=== PATIENT | female | born 1950 | race African-American/Black ===

== ENCOUNTER 2018-11-23 08:45 | Inpatient (IN) | payer MEDICARE, MEDICAID ==
[~2018-11-23] VITALS: Ht 177.8 cm; Wt 164.7 kg
[2018-11-23 09:58] LABS: HEMATOCRIT. 40.5 % (36.0-48.0); HEMOGLOBIN. 13.1 g/dL (12.0-16.0); MEAN CORPUSCULAR HEMOGLOBIN 31.2 pg (28.0-32.0); MEAN CORPUSCULAR VOLUME 96.3 fL (81.0-99.0); MEAN PLATELET VOLUME 8.8 fl (7.4-10.4); PLATELET 184 x1000/uL (130-400); RED CELL DISTRIBUTION WIDTH 18.1 % (11.6-14.6)
[2018-11-23 10:21] LABS: PLATELET ESTIMATE NORMAL
[2018-11-23 11:52] LABS: CHLORIDE 108 mEq/L (98-107)
[2018-11-23 11:54] LABS: INR 1.1; PROTHROMBIN TIME 11.2 sec (9.1-11.1)
[2018-11-23 14:34] VITALS: BP 121/71
[2018-11-23 16:00] VITALS: BP 131/56
[2018-11-23] MEDS ORDERED: ALLO100T PO (16:11)
[2018-11-23] MEDS ORDERED: ALLO100T MT (16:11)
[2018-11-23] MEDS ORDERED: COLC0.6C3 MT (16:11)
[2018-11-23] MEDS ORDERED: ERGO500013 MT (16:11)
[2018-11-23] MEDS ORDERED: ACET-2853 PO (16:11)
[2018-11-23] MEDS: POTASSIUM CHLORIDE 10MEQ TABLET SR PO SCH (16:34)
[2018-11-23] MEDS: FUROSEMIDE 40MG/4ML VIAL IVP SCH (16:34)
[2018-11-23] MEDS: ACETAMINOPHEN 325MG TABLET PO PRN ×2 (16:35→21:41)
[2018-11-23] MEDS ORDERED: SOTA80TA25 MT (16:56)
[2018-11-23] MEDS ORDERED: LOV40 SQ (16:56)
[2018-11-23] MEDS ORDERED: LORA10TA7 PO (16:56)
[2018-11-23] MEDS ORDERED: OMEP20CA10 MT (16:56)
[2018-11-23] MEDS ORDERED: POTA20TA82 MT (16:56)
[2018-11-23] MEDS ORDERED: OXYC-523 MT (16:56)
[2018-11-23] MEDS ORDERED: LORA10TA7 MT (16:56)
[2018-11-23] MEDS ORDERED: LIDO30CR46 TP (16:56)
[2018-11-23] MEDS ORDERED: GABA-531 MT (16:56)
[2018-11-23] MEDS ORDERED: FURO80TA87 MT (16:56)
[2018-11-23] MEDS ORDERED: TRAM50TA3 MT (16:58)
[2018-11-23] MEDS ORDERED: ONDA4TAB5 MT (16:58)
[2018-11-23] MEDS ORDERED: voltaren gel TD (16:58)
[2018-11-23 17:04] VITALS: BP 121/71
[2018-11-23] MEDS ORDERED: WARFARIN SODIUM 10MG TABLET PO NR (18:00)
[2018-11-23 20:00] VITALS: BP 108/56
[2018-11-23] MEDS: IPRATROPIUM/ALBUTEROL 0.5-3(2.5)MG/3ML NEB HHN SCH (20:18)
[2018-11-23] MEDS: ENOXAPARIN 100MG/ML SYR SUBCUT SCH (21:14)
[2018-11-23] MEDS: METRONIDAZOLE 500 MG PREMIX 100 ML IV SCH (21:15)
[2018-11-23] MEDS: LEVOFLOXACIN 500MG PREMIX 100 ML IV SCH (21:15)
[2018-11-23] MEDS: LACTOBACILLUS GG CAPSULE PO SCH (21:16)
[2018-11-24] VITALS: BP 108/52
[2018-11-24 00:34] LABS: CREATINE KINASE 49 IU/L (26-192)
[2018-11-24 00:35] LABS: CREATINE KINASE MB FRACTION < 1.0 ng/mL (0.5-3.6)
[2018-11-24] MEDS: IPRATROPIUM/ALBUTEROL 0.5-3(2.5)MG/3ML NEB HHN SCH ×5 (00:52→20:19)
[2018-11-24 04:00] VITALS: BP 100/67
[2018-11-24] MEDS: METRONIDAZOLE 500 MG PREMIX 100 ML IV SCH ×3 (05:15→20:52)
[2018-11-24 06:39] LABS: INR 1.2; PROTHROMBIN TIME 11.6 sec (9.1-11.1)
[2018-11-24 06:59] LABS: CHLORIDE 108 mEq/L (98-107)
[2018-11-24 07:07] LABS: CREATINE KINASE 51 IU/L (26-192); HDL CHOLESTEROL 44 mg/dL (40-59)
[2018-11-24 07:08] LABS: BASOPHILS % 0.7 % (0.0-2.0); EOSINOPHILS % 1.8 % (0.0-5.0); HEMATOCRIT. 36.8 % (36.0-48.0); HEMOGLOBIN. 11.9 g/dL (12.0-16.0); LDL CHOLESTEROL 72 mg/dL (5-100); LYMPHOCYTES % 17.4 % (20.0-50.0); MEAN CORPUSCULAR HEMOGLOBIN 31.3 pg (28.0-32.0); MEAN CORPUSCULAR VOLUME 97.1 fL (81.0-99.0); MONOCYTES % 7.4 % (2.0-8.0); NEUTROPHILS % 72.7 % (40.0-76.0); PLATELET 162 x1000/uL (130-400); RED BLOOD CELL COUNT 3.79 mill/uL (4.2-5.4); RED CELL DISTRIBUTION WIDTH 17.4 % (11.6-14.6)
[2018-11-24 07:13] LABS: CREATINE KINASE MB FRACTION < 1.0 ng/mL (0.5-3.6)
[2018-11-24 08:00] VITALS: BP 113/67
[2018-11-24] MEDS ORDERED: DIATR MEGLU/DIATRIZOATE SOLN 30ML PO SCH (08:30)
[2018-11-24] MEDS: LACTOBACILLUS GG CAPSULE PO SCH (09:30)
[2018-11-24] MEDS: AMLODIPINE 2.5MG TABLET PO SCH (09:31)
[2018-11-24] MEDS: FUROSEMIDE 40MG/4ML VIAL IVP SCH (09:31)
[2018-11-24] MEDS: POTASSIUM CHLORIDE 10MEQ TABLET SR PO SCH (09:32)
[2018-11-24] MEDS: ENOXAPARIN 100MG/ML SYR SUBCUT SCH (09:33)
[2018-11-24] MEDS: ACETAMINOPHEN 325MG TABLET PO PRN ×2 (11:14→23:24)
[2018-11-24 12:00] VITALS: BP 134/71
[2018-11-24] MEDS ORDERED: IOHEXOL-300 100 ML BOTTLE ONE (12:42)
[2018-11-24] MEDS: SOTALOL HCL 80MG TABLET PO SCH ×2 (14:18→20:51)
[2018-11-24 16:00] VITALS: BP 138/78
[2018-11-24 16:14] LABS: CREATINE KINASE 59 IU/L (26-192)
[2018-11-24 16:15] LABS: CREATINE KINASE MB FRACTION < 1.0 ng/mL (0.5-3.6)
[2018-11-24] MEDS ORDERED: WARFARIN SODIUM 10MG TABLET PO SCH (18:00)
[2018-11-24 20:00] VITALS: BP 176/71
[2018-11-24] MEDS: ENOXAPARIN 150MG/ML SYR SUBCUT SCH (20:50)
[2018-11-24] MEDS: LEVOFLOXACIN 500MG PREMIX 100 ML IV SCH (20:51)
[2018-11-24] MEDS: ONDANSETRON HCL 4MG/2ML INJ IV PRN (23:25)
[2018-11-25] VITALS: BP 135/71
[2018-11-25 04:00] VITALS: BP 142/73
[2018-11-25] MEDS: IPRATROPIUM/ALBUTEROL 0.5-3(2.5)MG/3ML NEB HHN SCH ×3 (04:00→21:01)
[2018-11-25] MEDS: METRONIDAZOLE 500 MG PREMIX 100 ML IV SCH ×3 (04:34→21:16)
[2018-11-25] MEDS: ONDANSETRON HCL 4MG/2ML INJ IV PRN (05:32)
[2018-11-25] MEDS: ACETAMINOPHEN 325MG TABLET PO PRN ×2 (05:32→11:56)
[2018-11-25 06:51] LABS: INR 1.2; PROTHROMBIN TIME 11.7 sec (9.1-11.1)
[2018-11-25 07:10] LABS: BASOPHILS % 0.4 % (0.0-2.0); EOSINOPHILS % 0.8 % (0.0-5.0); HEMOGLOBIN. 10.9 g/dL (12.0-16.0); LYMPHOCYTES % 12.4 % (20.0-50.0); MEAN CORPUSCULAR HEMOGLOBIN 31.1 pg (28.0-32.0); MEAN CORPUSCULAR VOLUME 96.8 fL (81.0-99.0); MEAN PLATELET VOLUME 8.9 fl (7.4-10.4); MONOCYTES % 7.7 % (2.0-8.0); NEUTROPHILS % 78.7 % (40.0-76.0); PLATELET 157 x1000/uL (130-400); RED BLOOD CELL COUNT 3.52 mill/uL (4.2-5.4); RED CELL DISTRIBUTION WIDTH 17.6 % (11.6-14.6)
[2018-11-25 08:00] VITALS: BP 134/58
[2018-11-25 08:51] LABS: CHLORIDE 107 mEq/L (98-107)
[2018-11-25] MEDS: LACTOBACILLUS GG CAPSULE PO SCH (10:13)
[2018-11-25] MEDS: ENOXAPARIN 150MG/ML SYR SUBCUT SCH ×2 (10:13→21:15)
[2018-11-25] MEDS: POTASSIUM CHLORIDE 10MEQ TABLET SR PO SCH (10:13)
[2018-11-25] MEDS: FUROSEMIDE 40MG/4ML VIAL IVP SCH (10:13)
[2018-11-25] MEDS: AMLODIPINE 2.5MG TABLET PO SCH (10:14)
[2018-11-25] MEDS: SOTALOL HCL 80MG TABLET PO SCH ×2 (10:15→21:16)
[2018-11-25 12:00] VITALS: BP 174/85
[2018-11-25 16:00] VITALS: BP 135/77
[2018-11-25] MEDS ORDERED: WARFARIN SODIUM 10MG TABLET PO NR (18:00)
[2018-11-25] MEDS: TRAMADOL HCL/ACETAMINOPHEN 37.5/325MG TABLET PO PRN (18:12)
[2018-11-25] MEDS: LEVOFLOXACIN 500MG PREMIX 100 ML IV SCH (20:13)
[2018-11-25 20:45] VITALS: BP 118/63
[2018-11-26] VITALS (9 sets, daily range): BP systolic 114–145; BP diastolic 63–80
[2018-11-26] MEDS: IPRATROPIUM/ALBUTEROL 0.5-3(2.5)MG/3ML NEB HHN SCH ×7 (04:00→23:49)
[2018-11-26] MEDS: METRONIDAZOLE 500 MG PREMIX 100 ML IV SCH ×3 (04:52→21:32)
[2018-11-26] MEDS: ONDANSETRON HCL 4MG/2ML INJ IV PRN ×2 (04:52→14:51)
[2018-11-26 07:44] LABS: BASOPHILS % 0.5 % (0.0-2.0); EOSINOPHILS % 1.1 % (0.0-5.0); HEMATOCRIT. 34.2 % (36.0-48.0); HEMOGLOBIN. 11.2 g/dL (12.0-16.0); LYMPHOCYTES % 14.4 % (20.0-50.0); MEAN CORPUSCULAR HEMOGLOBIN 31.5 pg (28.0-32.0); MEAN CORPUSCULAR VOLUME 96.2 fL (81.0-99.0); MEAN PLATELET VOLUME 9.3 fl (7.4-10.4); MONOCYTES % 9.1 % (2.0-8.0); NEUTROPHILS % 74.9 % (40.0-76.0); PLATELET 148 x1000/uL (130-400); RED BLOOD CELL COUNT 3.56 mill/uL (4.2-5.4); RED CELL DISTRIBUTION WIDTH 17.2 % (11.6-14.6)
[2018-11-26 08:05] LABS: CHLORIDE 107 mEq/L (98-107)
[2018-11-26 08:20] LABS: INR 1.4; PROTHROMBIN TIME 13.9 sec (9.1-11.1)
[2018-11-26] MEDS: TRAMADOL HCL/ACETAMINOPHEN 37.5/325MG TABLET PO PRN (11:14)
[2018-11-26] MEDS: FUROSEMIDE 40MG/4ML VIAL IVP SCH (11:15)
[2018-11-26] MEDS: AMLODIPINE 2.5MG TABLET PO SCH (11:15)
[2018-11-26] MEDS: POTASSIUM CHLORIDE 10MEQ TABLET SR PO SCH (11:15)
[2018-11-26] MEDS: SOTALOL HCL 80MG TABLET PO SCH ×2 (11:16→20:45)
[2018-11-26] MEDS: ENOXAPARIN 150MG/ML SYR SUBCUT SCH ×2 (11:16→20:44)
[2018-11-26] MEDS: LACTOBACILLUS GG CAPSULE PO SCH (11:17)
[2018-11-26] MEDS ORDERED: WARFARIN SODIUM 7.5MG TABLET PO NR (18:00)
[2018-11-26] MEDS: LEVOFLOXACIN 500MG PREMIX 100 ML IV SCH (20:44)
[2018-11-27] MEDS: IPRATROPIUM/ALBUTEROL 0.5-3(2.5)MG/3ML NEB HHN SCH ×4 (04:00→15:36)
[2018-11-27 04:01] VITALS: BP 125/66
[2018-11-27 04:14] LABS: OVA & PARASITE EXAM Final report (.)
[2018-11-27] MEDS: METRONIDAZOLE 500 MG PREMIX 100 ML IV SCH ×2 (05:00→13:33)
[2018-11-27 06:33] LABS: INR 1.6; PROTHROMBIN TIME 16.1 sec (9.1-11.1)
[2018-11-27 06:42] LABS: CHLORIDE 105 mEq/L (98-107)
[2018-11-27 07:24] LABS: BASOPHILS % 0.3 % (0.0-2.0); EOSINOPHILS % 1.6 % (0.0-5.0); HEMATOCRIT. 36.8 % (36.0-48.0); HEMOGLOBIN. 11.9 g/dL (12.0-16.0); LYMPHOCYTES % 14.4 % (20.0-50.0); MEAN CORPUSCULAR HEMOGLOBIN 31.4 pg (28.0-32.0); MEAN CORPUSCULAR VOLUME 96.9 fL (81.0-99.0); MONOCYTES % 8.7 % (2.0-8.0); PLATELET 163 x1000/uL (130-400); RED CELL DISTRIBUTION WIDTH 17.5 % (11.6-14.6)
[2018-11-27 08:00] VITALS: BP 120/75
[2018-11-27] MEDS: LACTOBACILLUS GG CAPSULE PO SCH (08:44)
[2018-11-27] MEDS: POTASSIUM CHLORIDE 10MEQ TABLET SR PO SCH (08:44)
[2018-11-27] MEDS: AMLODIPINE 2.5MG TABLET PO SCH (08:44)
[2018-11-27] MEDS: SOTALOL HCL 80MG TABLET PO SCH (08:44)
[2018-11-27] MEDS: FUROSEMIDE 40MG/4ML VIAL IVP SCH (08:44)
[2018-11-27] MEDS: ENOXAPARIN 150MG/ML SYR SUBCUT SCH (08:45)
[2018-11-27] MEDS: ACETAMINOPHEN 325MG TABLET PO PRN ×2 (08:56→15:16)
[2018-11-27 14:17] VITALS: BP 128/67
[2018-11-27 17:05] VITALS: BP 133/64
[2018-11-27] MEDS ORDERED: WARFARIN SODIUM 7.5MG TABLET PO SCH (18:00)
== END 2018-11-27 19:21 | DRG 189 ==
LOC: ER 08:54 → 6WST 12:19 → EDBEDREQTM 12:22 → EDBEDREQ 12:22 → ENRESERV 12:31
PROVIDERS: ADMIT Internal Medicine; ATTEND Internal Medicine Geriatric Medicine
DX: J96.00 Acute respiratory failure, unspecified whether with hypoxia or hypercapnia (principal); E44.1 Mild protein-calorie malnutrition; Z68.43 Body mass index [BMI] 50.0-59.9, adult; I95.9 Hypotension, unspecified; I50.9 Heart failure, unspecified; I11.0 Hypertensive heart disease with heart failure; I77.810 Thoracic aortic ectasia; E03.9 Hypothyroidism, unspecified; M10.9 Gout, unspecified; E66.01 Morbid (severe) obesity due to excess calories; K52.9 Noninfective gastroenteritis and colitis, unspecified; I48.0 Paroxysmal atrial fibrillation; Z90.11 Acquired absence of right breast and nipple; Z90.12 Acquired absence of left breast and nipple; Z90.710 Acquired absence of both cervix and uterus; Z88.8 Allergy status to other drugs, medicaments and biological substances; Z88.0 Allergy status to penicillin; Z88.5 Allergy status to narcotic agent; Z79.01 Long term (current) use of anticoagulants; Z79.899 Other long term (current) drug therapy; Z92.21 Personal history of antineoplastic chemotherapy; Z85.3 Personal history of malignant neoplasm of breast; Z85.42 Personal history of malignant neoplasm of other parts of uterus; Z86.711 Personal history of pulmonary embolism; Z86.718 Personal history of other venous thrombosis and embolism
CPT/HCPCS: 36415; 71045; 74178; 78580; 80048; 80061; 82550; 82553; 83735; 83880; 84484; 84550; 87177; 87209; 89055; 93005; 93306; 93970; 94640; 97162; 99285; A6261; J1650; J1940; J1956; J2405; J3490; J7040; J7620; Q9963; Q9967

== ENCOUNTER 2020-02-28 22:20 | Inpatient (IN) | payer MEDICARE, MEDICAID ==
[~2020-02-28] VITALS: Ht 177.8 cm; Wt 159.2 kg
[2020-02-28 22:20] VITALS: BP 109/56
[~2020-02-28 22:20] MED LIST: ACET650T37 PO; ALLO100T MT; ALLO100T PO; COLC0.6C3 MT; ERGO500013 MT; FURO80TA87 MT; GABA-531 MT; LIDO30CR46 TP; LORA10TA7 MT; LORA10TA7 PO; LOV40 SQ; OMEP20CA14 MT; ONDA4TAB5 MT; OXYC-523 MT; POTA20TA82 MT; SOTA80TA25 MT; TRAM50TA3 MT; voltaren gel TD
[2020-02-28 23:00] VITALS: BP 109/56
[2020-02-29] MEDS ORDERED: CLONIDINE 0.1MG TABLET PO PRN
[2020-02-29] MEDS ORDERED: TRAMADOL 50MG TABLET PO PRN
[2020-02-29] MEDS ORDERED: ONDANSETRON HCL 4MG/2ML INJ IV PRN (00:30)
[2020-02-29] MEDS ORDERED: SOTA80TA MT (04:50)
[2020-02-29] MEDS ORDERED: GABA-531 PO (04:58)
[2020-02-29] MEDS ORDERED: HYDR-3281 PO (04:58)
[2020-02-29] MEDS: GABAPENTIN 300MG CAPSULE PO SCH ×3 (06:45→21:58)
[2020-02-29] MEDS: HYDROCODONE/ACETAMINOPHEN 5/325MG TABLET PO PRN (06:45)
[2020-02-29 08:00] VITALS: BP 120/83
[2020-02-29] MEDS ORDERED: SOTALOL HCL 80MG TABLET PO ONE (08:30)
[2020-02-29] MEDS: APIXABAN 5 MG TABLET PO SCH ×2 (08:49→18:17)
[2020-02-29] MEDS: GUAIFENESIN 600MG ER TABLET PO SCH ×2 (08:49→21:58)
[2020-02-29] MEDS: POTASSIUM CHLORIDE 10MEQ TABLET SR PO SCH (08:49)
[2020-02-29] MEDS: ALLOPURINOL 100 MG TABLET PO SCH (08:50)
[2020-02-29] MEDS: DILTIAZEM HCL 60MG TABLET PO PRN (08:51)
[2020-02-29] MEDS: FUROSEMIDE 40MG TABLET PO SCH (08:52)
[2020-02-29] MEDS ORDERED: FUROSEMIDE 40MG/4ML VIAL IVP SCH (09:00)
[2020-02-29] MEDS ORDERED: FUROSEMIDE 40MG TABLET PO SCH (09:00)
[2020-02-29] MEDS: FAMOTIDINE 20MG TABLET PO SCH ×2 (09:46→21:58)
[2020-02-29] MEDS: SOTALOL HCL 80MG TABLET PO SCH ×2 (09:47→21:59)
[2020-02-29] MEDS ORDERED: POLYVINYL ALCOHOL OPHTH DROPS 15ML BOTHEYE PRN (10:30)
[2020-02-29 11:57] LABS: BASOPHILS % 0.7 % (0.0-2.0); EOSINOPHILS % 2.1 % (0.0-5.0); HEMATOCRIT. 43.4 % (36.0-48.0); HEMOGLOBIN. 14.2 g/dL (12.0-16.0); LYMPHOCYTES % 16.2 % (20.0-50.0); MEAN CORPUSCULAR HEMOGLOBIN 30.4 pg (28.0-32.0); MEAN CORPUSCULAR VOLUME 92.8 fL (81.0-99.0); MEAN PLATELET VOLUME 9.1 fl (7.4-10.4); MONOCYTES % 5.9 % (2.0-8.0); NEUTROPHILS % 75.1 % (40.0-76.0); PLATELET 314 x1000/uL (130-400); RED BLOOD CELL COUNT 4.67 mill/uL (4.2-5.4); RED CELL DISTRIBUTION WIDTH 17.9 % (11.6-14.6)
[2020-02-29 12:06] LABS: CHLORIDE 103 mEq/L (98-107)
[2020-02-29] MEDS: DOCUSATE SODIUM 250MG CAPSULE PO SCH (18:17)
[2020-02-29] MEDS: ACETAMINOPHEN 325MG TABLET PO PRN (18:20)
[2020-02-29 20:00] VITALS: BP 125/75
[2020-02-29] MEDS: IPRATROPIUM/ALBUTEROL 0.5-3(2.5)MG/3ML NEB HHN SCH (20:53)
[2020-03-01 00:15] VITALS: BP 107/70
[2020-03-01] MEDS: DILTIAZEM HCL 60MG TABLET PO PRN ×2 (00:46→07:00)
[2020-03-01] MEDS: GABAPENTIN 300MG CAPSULE PO SCH ×3 (06:54→21:24)
[2020-03-01] MEDS: HYDROCODONE/ACETAMINOPHEN 5/325MG TABLET PO PRN (06:59)
[2020-03-01] MEDS: IPRATROPIUM/ALBUTEROL 0.5-3(2.5)MG/3ML NEB HHN SCH ×4 (07:30→20:20)
[2020-03-01 07:54] VITALS: BP 115/77
[2020-03-01] MEDS: APIXABAN 5 MG TABLET PO SCH ×2 (08:24→17:17)
[2020-03-01] MEDS: FAMOTIDINE 20MG TABLET PO SCH ×2 (08:24→21:24)
[2020-03-01] MEDS: GUAIFENESIN 600MG ER TABLET PO SCH ×2 (08:24→21:24)
[2020-03-01] MEDS: ALLOPURINOL 100 MG TABLET PO SCH (08:24)
[2020-03-01] MEDS: DILTIAZEM HCL 60MG TABLET PO SCH ×4 (08:24→23:54)
[2020-03-01] MEDS: FUROSEMIDE 40MG TABLET PO SCH (08:24)
[2020-03-01] MEDS: POTASSIUM CHLORIDE 10MEQ TABLET SR PO SCH (08:24)
[2020-03-01] MEDS: SOTALOL HCL 80MG TABLET PO SCH ×2 (08:24→21:00)
[2020-03-01 08:44] LABS: BASOPHILS % 1.3 % (0.0-2.0); EOSINOPHILS % 2.6 % (0.0-5.0); HEMATOCRIT. 37.9 % (36.0-48.0); HEMOGLOBIN. 12.6 g/dL (12.0-16.0); LYMPHOCYTES % 17.7 % (20.0-50.0); MEAN CORPUSCULAR HEMOGLOBIN 30.2 pg (28.0-32.0); MEAN CORPUSCULAR VOLUME 90.8 fL (81.0-99.0); MEAN PLATELET VOLUME 8.9 fl (7.4-10.4); MONOCYTES % 5.1 % (2.0-8.0); NEUTROPHILS % 73.3 % (40.0-76.0); PLATELET 308 x1000/uL (130-400); RED BLOOD CELL COUNT 4.17 mill/uL (4.2-5.4); RED CELL DISTRIBUTION WIDTH 17.2 % (11.6-14.6)
[2020-03-01] MEDS: CEPHALEXIN 250MG CAPSULE PO SCH ×4 (09:28→21:24)
[2020-03-01] MEDS ORDERED: NA PHOS,M-B/NA PHOS,DI-BA ENEMA 118ML PR PRN (09:30)
[2020-03-01] MEDS: LACTULOSE 20G/30ML UDC PO PRN ×2 (13:46→17:17)
[2020-03-01] MEDS: ACETAMINOPHEN 325MG TABLET PO PRN (17:17)
[2020-03-01] MEDS: DOCUSATE SODIUM 250MG CAPSULE PO SCH (17:17)
[2020-03-01 20:00] VITALS: BP 106/59
[2020-03-02] MEDS: IPRATROPIUM/ALBUTEROL 0.5-3(2.5)MG/3ML NEB HHN SCH ×4 (01:02→20:05)
[2020-03-02] MEDS: GABAPENTIN 300MG CAPSULE PO SCH ×3 (05:51→21:40)
[2020-03-02] MEDS: DILTIAZEM HCL 60MG TABLET PO SCH (05:51)
[2020-03-02 06:44] LABS: BASOPHILS % 1.1 % (0.0-2.0); EOSINOPHILS % 3.2 % (0.0-5.0); HEMATOCRIT. 36.6 % (36.0-48.0); HEMOGLOBIN. 12.1 g/dL (12.0-16.0); LYMPHOCYTES % 19.4 % (20.0-50.0); MEAN PLATELET VOLUME 8.9 fl (7.4-10.4); MONOCYTES % 6.5 % (2.0-8.0); NEUTROPHILS % 69.8 % (40.0-76.0); PLATELET 275 x1000/uL (130-400); RED BLOOD CELL COUNT 4.03 mill/uL (4.2-5.4); RED CELL DISTRIBUTION WIDTH 17.5 % (11.6-14.6)
[2020-03-02 06:54] LABS: CHLORIDE 104 mEq/L (98-107)
[2020-03-02] MEDS: ALLOPURINOL 100 MG TABLET PO SCH (08:05)
[2020-03-02] MEDS: BISACODYL 5MG TABLET PO PRN (08:05)
[2020-03-02] MEDS: APIXABAN 5 MG TABLET PO SCH ×2 (08:06→17:57)
[2020-03-02] MEDS: CEPHALEXIN 250MG CAPSULE PO SCH ×4 (08:07→20:22)
[2020-03-02] MEDS: GUAIFENESIN 600MG ER TABLET PO SCH ×2 (08:07→20:22)
[2020-03-02] MEDS: POTASSIUM CHLORIDE 10MEQ TABLET SR PO SCH (08:10)
[2020-03-02] MEDS: FAMOTIDINE 20MG TABLET PO SCH ×2 (08:12→20:22)
[2020-03-02] MEDS: HYDROCODONE/ACETAMINOPHEN 5/325MG TABLET PO PRN (08:16)
[2020-03-02] MEDS: SOTALOL HCL 80MG TABLET PO SCH ×3 (08:17→20:48)
[2020-03-02] MEDS: FUROSEMIDE 40MG TABLET PO SCH (08:18)
[2020-03-02] MEDS: DILTIAZEM HCL 90MG TABLET PO SCH ×2 (12:32→17:46)
[2020-03-02] MEDS: DOCUSATE SODIUM 250MG CAPSULE PO SCH (17:46)
[2020-03-02 20:00] VITALS: BP 108/66
[2020-03-03] MEDS: DILTIAZEM HCL 60MG TABLET PO PRN (00:19)
[2020-03-03 00:29] VITALS: BP 120/79
[2020-03-03] MEDS: DILTIAZEM HCL 90MG TABLET PO SCH ×5 (00:29→23:01)
[2020-03-03] MEDS: GABAPENTIN 300MG CAPSULE PO SCH ×3 (06:55→21:20)
[2020-03-03 07:25] LABS: EOSINOPHILS % 3.1 % (0.0-5.0); HEMATOCRIT. 36.3 % (36.0-48.0); HEMOGLOBIN. 11.8 g/dL (12.0-16.0); LYMPHOCYTES % 18.4 % (20.0-50.0); MEAN CORPUSCULAR HEMOGLOBIN 30.1 pg (28.0-32.0); MEAN CORPUSCULAR VOLUME 92.3 fL (81.0-99.0); MONOCYTES % 7.1 % (2.0-8.0); NEUTROPHILS % 70.4 % (40.0-76.0); PLATELET 269 x1000/uL (130-400); RED BLOOD CELL COUNT 3.94 mill/uL (4.2-5.4); RED CELL DISTRIBUTION WIDTH 18.1 % (11.6-14.6)
[2020-03-03 08:08] LABS: CHLORIDE 106 mEq/L (98-107)
[2020-03-03 08:30] VITALS: BP 115/63
[2020-03-03] MEDS: ALLOPURINOL 100 MG TABLET PO SCH (08:54)
[2020-03-03] MEDS: CEPHALEXIN 250MG CAPSULE PO SCH ×4 (08:54→21:20)
[2020-03-03] MEDS: POTASSIUM CHLORIDE 10MEQ TABLET SR PO SCH (08:54)
[2020-03-03] MEDS: FAMOTIDINE 20MG TABLET PO SCH ×2 (08:55→21:20)
[2020-03-03] MEDS: SOTALOL HCL 80MG TABLET PO SCH ×2 (08:59→21:20)
[2020-03-03] MEDS: IPRATROPIUM/ALBUTEROL 0.5-3(2.5)MG/3ML NEB HHN SCH ×3 (09:43→20:27)
[2020-03-03] MEDS: FUROSEMIDE 40MG TABLET PO SCH (10:13)
[2020-03-03] MEDS: APIXABAN 5 MG TABLET PO SCH ×2 (10:13→17:22)
[2020-03-03] MEDS: GUAIFENESIN 600MG ER TABLET PO SCH ×2 (10:14→21:20)
[2020-03-03] MEDS: DOCUSATE SODIUM 250MG CAPSULE PO SCH (17:49)
[2020-03-03 20:00] VITALS: BP 112/65
[2020-03-04] MEDS: IPRATROPIUM/ALBUTEROL 0.5-3(2.5)MG/3ML NEB HHN SCH ×4 (01:54→21:30)
[2020-03-04] MEDS: GABAPENTIN 300MG CAPSULE PO SCH ×3 (06:35→21:20)
[2020-03-04] MEDS: DILTIAZEM HCL 90MG TABLET PO SCH ×4 (06:36→23:18)
[2020-03-04 08:11] VITALS: BP 132/69
[2020-03-04] MEDS: CEPHALEXIN 250MG CAPSULE PO SCH ×4 (09:13→21:21)
[2020-03-04] MEDS: ACETAMINOPHEN 325MG TABLET PO PRN (09:13)
[2020-03-04] MEDS: FAMOTIDINE 20MG TABLET PO SCH ×2 (09:13→21:21)
[2020-03-04] MEDS: APIXABAN 5 MG TABLET PO SCH ×2 (09:14→16:46)
[2020-03-04] MEDS: POTASSIUM CHLORIDE 10MEQ TABLET SR PO SCH (09:14)
[2020-03-04] MEDS: ALLOPURINOL 100 MG TABLET PO SCH (09:14)
[2020-03-04] MEDS: GUAIFENESIN 600MG ER TABLET PO SCH ×2 (09:14→21:20)
[2020-03-04] MEDS: SOTALOL HCL 80MG TABLET PO SCH ×2 (09:15→21:21)
[2020-03-04] MEDS: FUROSEMIDE 40MG TABLET PO SCH (09:15)
[2020-03-04] MEDS: DOCUSATE SODIUM 250MG CAPSULE PO SCH (18:05)
[2020-03-04 20:00] VITALS: BP 112/64
[2020-03-05] MEDS: DILTIAZEM HCL 90MG TABLET PO SCH ×3 (06:00→17:44)
[2020-03-05] MEDS: GABAPENTIN 300MG CAPSULE PO SCH ×3 (06:24→21:57)
[2020-03-05] MEDS: DILTIAZEM HCL 60MG TABLET PO PRN ×2 (06:25→17:44)
[2020-03-05 06:43] LABS: BASOPHILS % 0.6 % (0.0-2.0); EOSINOPHILS % 2.8 % (0.0-5.0); HEMATOCRIT. 34.9 % (36.0-48.0); HEMOGLOBIN. 11.3 g/dL (12.0-16.0); LYMPHOCYTES % 21.6 % (20.0-50.0); MEAN CORPUSCULAR HEMOGLOBIN 29.9 pg (28.0-32.0); MEAN CORPUSCULAR VOLUME 92.1 fL (81.0-99.0); MEAN PLATELET VOLUME 8.8 fl (7.4-10.4); MONOCYTES % 6.2 % (2.0-8.0); NEUTROPHILS % 68.8 % (40.0-76.0); PLATELET 261 x1000/uL (130-400); RED BLOOD CELL COUNT 3.79 mill/uL (4.2-5.4); RED CELL DISTRIBUTION WIDTH 17.9 % (11.6-14.6)
[2020-03-05 07:55] VITALS: BP 126/75
[2020-03-05] MEDS: IPRATROPIUM/ALBUTEROL 0.5-3(2.5)MG/3ML NEB HHN SCH ×2 (08:32→13:55)
[2020-03-05 08:45] LABS: CHLORIDE 107 mEq/L (98-107)
[2020-03-05] MEDS: FAMOTIDINE 20MG TABLET PO SCH ×2 (09:03→21:28)
[2020-03-05] MEDS: GUAIFENESIN 600MG ER TABLET PO SCH ×2 (09:03→21:28)
[2020-03-05] MEDS: ALLOPURINOL 100 MG TABLET PO SCH (09:03)
[2020-03-05] MEDS: FUROSEMIDE 40MG TABLET PO SCH (09:04)
[2020-03-05] MEDS: APIXABAN 5 MG TABLET PO SCH ×2 (09:04→16:56)
[2020-03-05] MEDS: CEPHALEXIN 250MG CAPSULE PO SCH ×5 (09:04→21:28)
[2020-03-05] MEDS: SOTALOL HCL 80MG TABLET PO SCH ×2 (09:05→21:38)
[2020-03-05] MEDS: POTASSIUM CHLORIDE 10MEQ TABLET SR PO SCH (09:05)
[2020-03-05] MEDS: ACETAMINOPHEN 325MG TABLET PO PRN ×2 (09:09→22:10)
[2020-03-05] MEDS: DOCUSATE SODIUM 250MG CAPSULE PO SCH (17:42)
[2020-03-05 20:00] VITALS: BP 111/54
[2020-03-06] MEDS: GABAPENTIN 300MG CAPSULE PO SCH ×3 (06:13→21:43)
[2020-03-06] MEDS: DILTIAZEM HCL 90MG TABLET PO SCH ×4 (06:13→17:22)
[2020-03-06] MEDS: IPRATROPIUM/ALBUTEROL 0.5-3(2.5)MG/3ML NEB HHN SCH ×2 (07:34→13:29)
[2020-03-06 07:56] VITALS: BP 126/64
[2020-03-06] MEDS: GUAIFENESIN 600MG ER TABLET PO SCH ×2 (09:40→21:43)
[2020-03-06] MEDS: SOTALOL HCL 80MG TABLET PO SCH ×2 (09:40→21:43)
[2020-03-06] MEDS: FUROSEMIDE 40MG TABLET PO SCH (09:40)
[2020-03-06] MEDS: POTASSIUM CHLORIDE 10MEQ TABLET SR PO SCH (09:40)
[2020-03-06] MEDS: ALLOPURINOL 100 MG TABLET PO SCH (09:40)
[2020-03-06] MEDS: FAMOTIDINE 20MG TABLET PO SCH ×2 (09:41→21:43)
[2020-03-06] MEDS: APIXABAN 5 MG TABLET PO SCH ×2 (09:41→17:19)
[2020-03-06] MEDS: ACETAMINOPHEN 325MG TABLET PO PRN (09:44)
[2020-03-06] MEDS ORDERED: IPRATROPIUM/ALBUTEROL 0.5-3(2.5)MG/3ML NEB HHN PRN (14:30)
[2020-03-06] MEDS: DOCUSATE SODIUM 250MG CAPSULE PO SCH (17:19)
[2020-03-06 20:00] VITALS: BP 120/46
[2020-03-07] MEDS: DILTIAZEM HCL 90MG TABLET PO SCH ×4 (00:46→17:33)
[2020-03-07] MEDS: GABAPENTIN 300MG CAPSULE PO SCH ×3 (06:39→21:40)
[2020-03-07 07:59] VITALS: BP 122/77
[2020-03-07 08:26] LABS: CHLORIDE 106 mEq/L (98-107)
[2020-03-07] MEDS: FUROSEMIDE 40MG TABLET PO SCH (08:41)
[2020-03-07] MEDS: GUAIFENESIN 600MG ER TABLET PO SCH ×2 (08:41→21:40)
[2020-03-07] MEDS: FAMOTIDINE 20MG TABLET PO SCH ×2 (08:41→21:40)
[2020-03-07] MEDS: ACETAMINOPHEN 325MG TABLET PO PRN ×2 (08:41→13:52)
[2020-03-07] MEDS: APIXABAN 5 MG TABLET PO SCH ×2 (08:41→16:25)
[2020-03-07] MEDS: POTASSIUM CHLORIDE 10MEQ TABLET SR PO SCH (08:41)
[2020-03-07] MEDS: SOTALOL HCL 80MG TABLET PO SCH ×2 (08:41→21:40)
[2020-03-07] MEDS: ALLOPURINOL 100 MG TABLET PO SCH (08:41)
[2020-03-07 08:47] LABS: BASOPHILS % 0.9 % (0.0-2.0); EOSINOPHILS % 4.3 % (0.0-5.0); HEMATOCRIT. 37.6 % (36.0-48.0); HEMOGLOBIN. 12.1 g/dL (12.0-16.0); LYMPHOCYTES % 19.9 % (20.0-50.0); MEAN CORPUSCULAR HEMOGLOBIN 29.4 pg (28.0-32.0); MEAN CORPUSCULAR VOLUME 91.1 fL (81.0-99.0); MEAN PLATELET VOLUME 9.2 fl (7.4-10.4); MONOCYTES % 6.1 % (2.0-8.0); NEUTROPHILS % 68.8 % (40.0-76.0); PLATELET 279 x1000/uL (130-400); RED BLOOD CELL COUNT 4.12 mill/uL (4.2-5.4); RED CELL DISTRIBUTION WIDTH 17.6 % (11.6-14.6)
[2020-03-07] MEDS: DOCUSATE SODIUM 250MG CAPSULE PO SCH (17:32)
[2020-03-07 20:00] VITALS: BP 120/66
[2020-03-08] MEDS: DILTIAZEM HCL 90MG TABLET PO SCH ×5 (06:11→23:07)
[2020-03-08] MEDS: GABAPENTIN 300MG CAPSULE PO SCH ×3 (06:11→21:05)
[2020-03-08 08:16] VITALS: BP 132/67
[2020-03-08] MEDS: POTASSIUM CHLORIDE 10MEQ TABLET SR PO SCH (08:44)
[2020-03-08] MEDS: FAMOTIDINE 20MG TABLET PO SCH ×2 (08:44→21:05)
[2020-03-08] MEDS: GUAIFENESIN 600MG ER TABLET PO SCH ×2 (08:44→21:06)
[2020-03-08] MEDS: FUROSEMIDE 40MG TABLET PO SCH (08:44)
[2020-03-08] MEDS: APIXABAN 5 MG TABLET PO SCH ×2 (08:45→18:10)
[2020-03-08] MEDS: SOTALOL HCL 80MG TABLET PO SCH ×2 (08:45→21:06)
[2020-03-08] MEDS: ALLOPURINOL 100 MG TABLET PO SCH (08:46)
[2020-03-08] MEDS: ACETAMINOPHEN 325MG TABLET PO PRN (08:58)
[2020-03-08 12:00] VITALS: BP 108/66
[2020-03-08] MEDS: DOCUSATE SODIUM 250MG CAPSULE PO SCH (18:11)
[2020-03-08 20:00] VITALS: BP 107/62
[2020-03-08 21:05] VITALS: BP 149/71
[2020-03-08 23:00] VITALS: BP 98/47
[2020-03-09] MEDS: DILTIAZEM HCL 90MG TABLET PO SCH ×4 (06:00→23:04)
[2020-03-09] MEDS: GABAPENTIN 300MG CAPSULE PO SCH ×3 (06:11→21:55)
[2020-03-09 08:15] VITALS: BP 138/80
[2020-03-09 08:16] LABS: BASOPHILS % 0.7 % (0.0-2.0); EOSINOPHILS % 2.6 % (0.0-5.0); HEMATOCRIT. 36.5 % (36.0-48.0); LYMPHOCYTES % 21.8 % (20.0-50.0); MEAN CORPUSCULAR HEMOGLOBIN 29.6 pg (28.0-32.0); MEAN CORPUSCULAR VOLUME 90.2 fL (81.0-99.0); MEAN PLATELET VOLUME 9.4 fl (7.4-10.4); MONOCYTES % 7.2 % (2.0-8.0); NEUTROPHILS % 67.7 % (40.0-76.0); PLATELET 246 x1000/uL (130-400); RED BLOOD CELL COUNT 4.04 mill/uL (4.2-5.4); RED CELL DISTRIBUTION WIDTH 17.2 % (11.6-14.6)
[2020-03-09 08:28] LABS: CHLORIDE 107 mEq/L (98-107)
[2020-03-09] MEDS: APIXABAN 5 MG TABLET PO SCH ×2 (08:36→17:01)
[2020-03-09] MEDS: FAMOTIDINE 20MG TABLET PO SCH ×2 (08:36→20:37)
[2020-03-09] MEDS: GUAIFENESIN 600MG ER TABLET PO SCH ×2 (08:36→20:37)
[2020-03-09] MEDS: ALLOPURINOL 100 MG TABLET PO SCH (08:37)
[2020-03-09] MEDS: SOTALOL HCL 80MG TABLET PO SCH ×2 (08:37→20:37)
[2020-03-09] MEDS: POTASSIUM CHLORIDE 10MEQ TABLET SR PO SCH (08:37)
[2020-03-09] MEDS: FUROSEMIDE 40MG TABLET PO SCH (08:37)
[2020-03-09] MEDS: ACETAMINOPHEN 325MG TABLET PO PRN ×2 (08:41→13:04)
[2020-03-09 11:51] VITALS: BP 109/65
[2020-03-09] MEDS: DOCUSATE SODIUM 250MG CAPSULE PO SCH (17:01)
[2020-03-09 20:00] VITALS: BP 115/61
[2020-03-10] MEDS: DILTIAZEM HCL 90MG TABLET PO SCH ×4 (06:00→23:15)
[2020-03-10] MEDS: GABAPENTIN 300MG CAPSULE PO SCH ×3 (06:35→21:52)
[2020-03-10 08:00] VITALS: BP 125/49
[2020-03-10] MEDS: SOTALOL HCL 80MG TABLET PO SCH ×2 (09:00→21:52)
[2020-03-10] MEDS: FAMOTIDINE 20MG TABLET PO SCH ×2 (09:34→21:52)
[2020-03-10] MEDS: APIXABAN 5 MG TABLET PO SCH ×2 (09:34→17:21)
[2020-03-10] MEDS: ALLOPURINOL 100 MG TABLET PO SCH (09:35)
[2020-03-10] MEDS: FUROSEMIDE 40MG TABLET PO SCH (09:35)
[2020-03-10] MEDS: POTASSIUM CHLORIDE 10MEQ TABLET SR PO SCH (09:35)
[2020-03-10] MEDS: GUAIFENESIN 600MG ER TABLET PO SCH ×2 (09:35→21:52)
[2020-03-10] MEDS: DOCUSATE SODIUM 250MG CAPSULE PO SCH (17:03)
[2020-03-10 20:00] VITALS: BP 111/75
[2020-03-11] MEDS: GABAPENTIN 300MG CAPSULE PO SCH ×3 (06:26→22:16)
[2020-03-11] MEDS: DILTIAZEM HCL 90MG TABLET PO SCH ×3 (06:26→16:49)
[2020-03-11 06:29] LABS: BASOPHILS % 0.6 % (0.0-2.0); EOSINOPHILS % 2.4 % (0.0-5.0); HEMATOCRIT. 40.6 % (36.0-48.0); HEMOGLOBIN. 13.3 g/dL (12.0-16.0); MEAN CORPUSCULAR HEMOGLOBIN 29.6 pg (28.0-32.0); MEAN CORPUSCULAR VOLUME 90.8 fL (81.0-99.0); MEAN PLATELET VOLUME 9.7 fl (7.4-10.4); MONOCYTES % 5.5 % (2.0-8.0); NEUTROPHILS % 70.5 % (40.0-76.0); PLATELET 235 x1000/uL (130-400); RED BLOOD CELL COUNT 4.47 mill/uL (4.2-5.4); RED CELL DISTRIBUTION WIDTH 17.5 % (11.6-14.6)
[2020-03-11 06:56] LABS: CHLORIDE 107 mEq/L (98-107)
[2020-03-11 08:08] VITALS: BP 119/76
[2020-03-11] MEDS: SOTALOL HCL 80MG TABLET PO SCH ×2 (08:14→21:00)
[2020-03-11] MEDS: ALLOPURINOL 100 MG TABLET PO SCH (08:14)
[2020-03-11] MEDS: POTASSIUM CHLORIDE 10MEQ TABLET SR PO SCH (08:14)
[2020-03-11] MEDS: APIXABAN 5 MG TABLET PO SCH ×2 (08:14→16:48)
[2020-03-11] MEDS: FAMOTIDINE 20MG TABLET PO SCH ×2 (08:14→22:17)
[2020-03-11] MEDS: GUAIFENESIN 600MG ER TABLET PO SCH ×2 (08:14→22:17)
[2020-03-11] MEDS: FUROSEMIDE 40MG TABLET PO SCH (08:15)
[2020-03-11] MEDS: ACETAMINOPHEN 325MG TABLET PO PRN (11:36)
[2020-03-11] MEDS: DOCUSATE SODIUM 250MG CAPSULE PO SCH (16:48)
[2020-03-11 20:00] VITALS: BP 105/56
[2020-03-12] MEDS: GABAPENTIN 300MG CAPSULE PO SCH ×3 (06:40→21:32)
[2020-03-12] MEDS: DILTIAZEM HCL 90MG TABLET PO SCH ×4 (06:41→17:56)
[2020-03-12 06:47] LABS: BASOPHILS % 0.5 % (0.0-2.0); EOSINOPHILS % 3.5 % (0.0-5.0); HEMATOCRIT. 40.3 % (36.0-48.0); HEMOGLOBIN. 12.7 g/dL (12.0-16.0); LYMPHOCYTES % 17.3 % (20.0-50.0); MEAN CORPUSCULAR HEMOGLOBIN 29.3 pg (28.0-32.0); MEAN CORPUSCULAR VOLUME 92.6 fL (81.0-99.0); MEAN PLATELET VOLUME 9.5 fl (7.4-10.4); MONOCYTES % 5.9 % (2.0-8.0); NEUTROPHILS % 72.8 % (40.0-76.0); PLATELET 207 x1000/uL (130-400); RED BLOOD CELL COUNT 4.35 mill/uL (4.2-5.4); RED CELL DISTRIBUTION WIDTH 17.5 % (11.6-14.6)
[2020-03-12 07:57] LABS: CHLORIDE 108 mEq/L (98-107)
[2020-03-12 08:00] VITALS: BP 125/66
[2020-03-12] MEDS: FUROSEMIDE 40MG TABLET PO SCH (08:22)
[2020-03-12] MEDS: APIXABAN 5 MG TABLET PO SCH ×2 (08:22→17:56)
[2020-03-12] MEDS: SOTALOL HCL 80MG TABLET PO SCH ×2 (08:23→21:32)
[2020-03-12] MEDS: ALLOPURINOL 100 MG TABLET PO SCH (08:23)
[2020-03-12] MEDS: GUAIFENESIN 600MG ER TABLET PO SCH ×2 (08:23→21:32)
[2020-03-12] MEDS: FAMOTIDINE 20MG TABLET PO SCH ×2 (08:23→21:32)
[2020-03-12] MEDS: ACETAMINOPHEN 325MG TABLET PO PRN (09:37)
[2020-03-12 11:50] VITALS: BP 106/66
[2020-03-12] MEDS: DOCUSATE SODIUM 250MG CAPSULE PO SCH (17:56)
[2020-03-12 20:00] VITALS: BP 112/66
[2020-03-13] MEDS: DILTIAZEM HCL 90MG TABLET PO SCH ×4 (05:56→17:33)
[2020-03-13] MEDS: GABAPENTIN 300MG CAPSULE PO SCH ×3 (05:56→21:22)
[2020-03-13 08:15] VITALS: BP 115/70
[2020-03-13] MEDS: APIXABAN 5 MG TABLET PO SCH ×2 (09:58→17:33)
[2020-03-13] MEDS: FAMOTIDINE 20MG TABLET PO SCH ×2 (09:58→21:22)
[2020-03-13] MEDS: GUAIFENESIN 600MG ER TABLET PO SCH ×2 (09:58→21:20)
[2020-03-13] MEDS: FUROSEMIDE 40MG TABLET PO SCH (09:58)
[2020-03-13] MEDS: ALLOPURINOL 100 MG TABLET PO SCH (09:59)
[2020-03-13] MEDS: SOTALOL HCL 80MG TABLET PO SCH ×2 (09:59→21:21)
[2020-03-13] MEDS: DOCUSATE SODIUM 250MG CAPSULE PO SCH (17:45)
[2020-03-13 20:00] VITALS: BP 135/40
[2020-03-13] MEDS: BISACODYL 5MG TABLET PO PRN (21:22)
[2020-03-14] MEDS: GABAPENTIN 300MG CAPSULE PO SCH ×2 (06:19→13:03)
[2020-03-14] MEDS: DILTIAZEM HCL 90MG TABLET PO SCH ×3 (06:23→13:04)
[2020-03-14 07:55] VITALS: BP 136/82
[2020-03-14] MEDS ORDERED: DIPHENOXYLATE/ATROPINE 2.5/0.025MG TABLET PO ONE (08:00)
[2020-03-14] MEDS ORDERED: DIPHENOXYLATE/ATROPINE 2.5/0.025MG TABLET PO PRN ×2 (08:00→12:00)
[2020-03-14] MEDS: ALLOPURINOL 100 MG TABLET PO SCH (08:26)
[2020-03-14] MEDS: GUAIFENESIN 600MG ER TABLET PO SCH (08:27)
[2020-03-14] MEDS: FUROSEMIDE 40MG TABLET PO SCH (08:27)
[2020-03-14] MEDS: SOTALOL HCL 80MG TABLET PO SCH (08:27)
[2020-03-14] MEDS: APIXABAN 5 MG TABLET PO SCH (08:27)
[2020-03-14] MEDS: FAMOTIDINE 20MG TABLET PO SCH (08:27)
[2020-03-14] MEDS: ACETAMINOPHEN 325MG TABLET PO PRN (09:06)
[2020-03-14 10:40] VITALS: BP 136/82
== END 2020-03-14 13:55 | disposition home health service (06) | DRG 308 ==
PROVIDERS: ADMIT Psychiatry & Neurology Neurology; ATTEND Internal Medicine Geriatric Medicine
DX: I49.5 Sick sinus syndrome (principal); J18.9 Pneumonia, unspecified organism; I48.92 Unspecified atrial flutter; I50.1 Left ventricular failure, unspecified; Z68.43 Body mass index [BMI] 50.0-59.9, adult; E44.1 Mild protein-calorie malnutrition; I48.20 Chronic atrial fibrillation, unspecified; I48.0 Paroxysmal atrial fibrillation; E66.01 Morbid (severe) obesity due to excess calories; I11.0 Hypertensive heart disease with heart failure; I80.8 Phlebitis and thrombophlebitis of other sites; I87.2 Venous insufficiency (chronic) (peripheral); Z85.3 Personal history of malignant neoplasm of breast; Z79.01 Long term (current) use of anticoagulants; Z86.711 Personal history of pulmonary embolism; Z86.718 Personal history of other venous thrombosis and embolism; Z90.12 Acquired absence of left breast and nipple; Z90.710 Acquired absence of both cervix and uterus; Z92.21 Personal history of antineoplastic chemotherapy; Z95.0 Presence of cardiac pacemaker; Z95.828 Presence of other vascular implants and grafts; Z85.42 Personal history of malignant neoplasm of other parts of uterus; J30.9 Allergic rhinitis, unspecified; R73.9 Hyperglycemia, unspecified; R09.82 Postnasal drip; M10.9 Gout, unspecified
CPT/HCPCS: 36415; 80048; 83735; 84443; 85025; 93005; 94640; 97110; 97116; 97162; 97167; 97530; 97535; A4565; J2405

== ENCOUNTER 2021-09-18 13:00 | Inpatient (IN) | payer MEDICARE, MEDICAID ==
[~2021-09-18] VITALS: Ht 177.8 cm; Wt 140.2 kg
[~2021-09-18 13:00] MED LIST changes: -ACET650T37 PO; -ALLO100T MT; -ALLO100T PO; -COLC0.6C3 MT; -ERGO500013 MT; -FURO80TA87 MT; -GABA-531 MT; +GABA-532 PO; +HYDR-4346 PO; -LIDO30CR46 TP; -LORA10TA7 MT; -LORA10TA7 PO; -LOV40 SQ; -OMEP20CA14 MT; -ONDA4TAB5 MT; -OXYC-523 MT; -POTA20TA82 MT; +SOTA80TA MT; -SOTA80TA25 MT; -TRAM50TA3 MT; -voltaren gel TD
[2021-09-18] MEDS ORDERED: ACETAMINOPHEN 325MG TABLET PO ONE (13:45)
[2021-09-18 14:41] LABS: HEMATOCRIT. 31.2 % (36.0-48.0); HEMOGLOBIN. 10.2 g/dL (12.0-16.0); MEAN CORPUSCULAR HEMOGLOBIN 29.7 pg (28.0-32.0); MEAN CORPUSCULAR VOLUME 91.2 fL (81.0-99.0); MEAN PLATELET VOLUME 9.6 fl (7.4-10.4); PLATELET 210 x1000/uL (130-400); RED BLOOD CELL COUNT 3.43 mill/uL (4.2-5.4)
[2021-09-18 14:46] LABS: CHLORIDE 110 mEq/L (98-107)
[2021-09-18 14:51] LABS: ETHANOL BLOOD < 10 mg/dL
[2021-09-18] MEDS ORDERED: DEXT 5%/0.45% NACL 1000ML 1,000 ML IV SCH (15:30)
[2021-09-18 15:37] LABS: PLATELET ESTIMATE NORMAL
[2021-09-18] MEDS: DILTIAZEM HCL 60MG TABLET PO SCH (16:22)
[2021-09-18] MEDS: DEXT 5%/0.45% NACL 1000ML 1,000 ML IV SCH (17:46)
[2021-09-18] MEDS ORDERED: NALOXONE HCL 0.4MG/ML VIAL IV PRN (18:15)
[2021-09-18] MEDS: HYDROCODONE/ACETAMINOPHEN 5/325MG TABLET PO PRN (20:27)
[2021-09-18 21:45] LABS: CLARITY URINE CLEAR (CLEAR); COLOR URINE YELLOW (YELLOW); KETONES URINE NEGATIVE (NEGATIVE); LEUKOCYTE ESTERASE URINE 2+ (NEGATIVE); NITRITE URINE NEGATIVE (NEGATIVE); OCCULT BLOOD URINE TRACE (NEGATIVE); PH URINE 5.5 (4.5-8.0); PROTEIN URINE NEGATIVE (NEGATIVE); SPECIFIC GRAVITY URINE 1.018 (1.005-1.030); UROBILINOGEN URINE 0.2 E.U./dL (0.2-1.0)
[2021-09-18 22:01] LABS: *AMPHETAMINES SCREEN URINE NEGATIVE (NEGATIVE); *BARBITURATES SCREEN URINE NEGATIVE (NEGATIVE); *BENZODIAZEPINES SCREEN URINE NEGATIVE (NEGATIVE); *COCAINE SCREEN URINE NEGATIVE (NEGATIVE); CANNABINOID URINE SCREEN NEGATIVE (NEGATIVE); OPIATES URINE SCREEN NEGATIVE (NEGATIVE); PHENCYCLIDINE URINE SCREEN NEGATIVE (NEGATIVE)
[2021-09-18 22:04] LABS: METHADONE URINE SCREEN NEGATIVE (NEGATIVE)
[2021-09-19] VITALS (7 sets, daily range): BP systolic 119–137; BP diastolic 6–65
[2021-09-19] MEDS ORDERED: TRAM100C3 PO (02:25)
[2021-09-19] MEDS ORDERED: FURO-152 PO (02:25)
[2021-09-19] MEDS: DILTIAZEM HCL 60MG TABLET PO SCH (05:05)
[2021-09-19] MEDS: HYDROCODONE/ACETAMINOPHEN 5/325MG TABLET PO PRN ×2 (05:06→15:37)
[2021-09-19 06:08] LABS: HEMATOCRIT. 29.9 % (36.0-48.0); HEMOGLOBIN. 9.7 g/dL (12.0-16.0); MEAN CORPUSCULAR HEMOGLOBIN 30.5 pg (28.0-32.0); MEAN PLATELET VOLUME 9.9 fl (7.4-10.4); PLATELET 237 x1000/uL (130-400); RED BLOOD CELL COUNT 3.19 mill/uL (4.2-5.4)
[2021-09-19] MEDS: PANTOPRAZOLE 40MG DR TABLET PO SCH (06:14)
[2021-09-19 06:19] LABS: CHLORIDE 110 mEq/L (98-107)
[2021-09-19] MEDS ORDERED: ENOXAPARIN 30MG/0.3ML SYR SUBCUT SCH (09:00)
[2021-09-19] MEDS: DOCUSATE SODIUM 250MG CAPSULE PO SCH (09:07)
[2021-09-19] MEDS: ENOXAPARIN 40MG/0.4ML SYR SUBCUT SCH (09:09)
[2021-09-19] MEDS: DEXT 5%/0.45% NACL 1000ML 1,000 ML IV SCH (09:10)
[2021-09-19] MEDS ORDERED: CLINDAMYCIN 600 MG in DEXTROSE 5% WATER 50 ML IV SCH (09:45)
[2021-09-19 10:16] LABS: PHOSPHORUS 3.9 mg/dL (2.5-4.9)
[2021-09-19] MEDS: SODIUM CHLORIDE 0.45% 1,000 ML IV SCH ×2 (10:34→17:40)
[2021-09-19 11:00] LABS: PLATELET ESTIMATE NORMAL
[2021-09-19] MEDS ORDERED: SOTALOL HCL 80MG TABLET PO NR (12:00)
[2021-09-19] MEDS: CEFTRIAXONE 1,000 MG in DEXTROSE 5% WATER 50 ML IV SCH (13:02)
[2021-09-19 14:28] LABS: HEPATITIS B SURFACE ANTIGEN NEGATIVE
[2021-09-19] MEDS: CLINDAMYCIN 600MG PREMIX 50 ML IV SCH ×2 (14:58→21:52)
[2021-09-19] MEDS: SOTALOL HCL 80MG TABLET PO SCH (21:52)
[2021-09-20] VITALS: BP 137/66
[2021-09-20] MEDS: HYDROCODONE/ACETAMINOPHEN 5/325MG TABLET PO PRN ×5 (02:07→21:28)
[2021-09-20 04:00] VITALS: BP 108/54
[2021-09-20] MEDS: SODIUM CHLORIDE 0.45% 1,000 ML IV SCH ×3 (06:37→17:03)
[2021-09-20] MEDS: PANTOPRAZOLE 40MG DR TABLET PO SCH (06:37)
[2021-09-20] MEDS: CLINDAMYCIN 600MG PREMIX 50 ML IV SCH ×3 (06:37→21:29)
[2021-09-20 07:46] LABS: HEMATOCRIT. 28.4 % (36.0-48.0); HEMOGLOBIN. 9.3 g/dL (12.0-16.0); MEAN CORPUSCULAR VOLUME 91.8 fL (81.0-99.0); MEAN PLATELET VOLUME 9.7 fl (7.4-10.4); PLATELET 303 x1000/uL (130-400); RED CELL DISTRIBUTION WIDTH 17.6 % (11.6-14.6)
[2021-09-20 08:00] VITALS: BP 105/56
[2021-09-20 08:05] LABS: CHLORIDE 107 mEq/L (98-107)
[2021-09-20] MEDS: SOTALOL HCL 80MG TABLET PO SCH ×2 (09:00→21:28)
[2021-09-20] MEDS: DOCUSATE SODIUM 250MG CAPSULE PO SCH (09:12)
[2021-09-20] MEDS: ENOXAPARIN 40MG/0.4ML SYR SUBCUT SCH ×2 (09:18→21:29)
[2021-09-20] MEDS: MULTIVITAMINS,THER W-MINERALS TABLET PO SCH (11:28)
[2021-09-20] MEDS: CEFTRIAXONE 1,000 MG in DEXTROSE 5% WATER 50 ML IV SCH (11:28)
[2021-09-20] MEDS: FERROUS SULFATE 325MG TABLET PO SCH ×2 (11:28→16:35)
[2021-09-20 12:00] VITALS: BP 119/72
[2021-09-20 12:50] LABS: PLATELET ESTIMATE NORMAL
[2021-09-20] MEDS: GABAPENTIN 100MG CAPSULE PO SCH ×2 (14:58→21:27)
[2021-09-20 16:00] VITALS: BP 118/76
[2021-09-20 20:00] VITALS: BP 111/58
[2021-09-21] VITALS: BP 103/70
[2021-09-21] MEDS: SODIUM CHLORIDE 0.45% 1,000 ML IV SCH ×3 (02:05→17:45)
[2021-09-21] MEDS: HYDROCODONE/ACETAMINOPHEN 5/325MG TABLET PO PRN ×4 (02:19→21:35)
[2021-09-21 04:00] VITALS: BP 101/59
[2021-09-21] MEDS: GABAPENTIN 100MG CAPSULE PO SCH ×3 (06:29→21:35)
[2021-09-21] MEDS: CLINDAMYCIN 600MG PREMIX 50 ML IV SCH ×3 (06:29→21:36)
[2021-09-21] MEDS: PANTOPRAZOLE 40MG DR TABLET PO SCH (06:29)
[2021-09-21 07:07] LABS: HEMOGLOBIN. 9.4 g/dL (12.0-16.0); MEAN CORPUSCULAR HEMOGLOBIN 29.7 pg (28.0-32.0); MEAN CORPUSCULAR VOLUME 94.3 fL (81.0-99.0); MEAN PLATELET VOLUME 9.8 fl (7.4-10.4); PLATELET 190 x1000/uL (130-400); RED BLOOD CELL COUNT 3.18 mill/uL (4.2-5.4); RED CELL DISTRIBUTION WIDTH 17.3 % (11.6-14.6)
[2021-09-21 07:08] LABS: CHLORIDE 105 mEq/L (98-107)
[2021-09-21 08:00] VITALS: BP 116/66
[2021-09-21] MEDS: MULTIVITAMINS,THER W-MINERALS TABLET PO SCH (08:53)
[2021-09-21] MEDS: FERROUS SULFATE 325MG TABLET PO SCH ×2 (08:54→17:00)
[2021-09-21] MEDS: ENOXAPARIN 40MG/0.4ML SYR SUBCUT SCH ×2 (08:54→21:36)
[2021-09-21] MEDS: DOCUSATE SODIUM 250MG CAPSULE PO SCH (08:54)
[2021-09-21] MEDS: SOTALOL HCL 80MG TABLET PO SCH ×2 (08:56→21:34)
[2021-09-21 12:00] VITALS: BP 104/62
[2021-09-21] MEDS: CEFTRIAXONE 1,000 MG in DEXTROSE 5% WATER 50 ML IV SCH (12:17)
[2021-09-21 12:48] LABS: PLATELET ESTIMATE NORMAL
[2021-09-21 16:00] VITALS: BP 114/59
[2021-09-21 20:00] VITALS: BP 126/63
[2021-09-22] VITALS: BP 101/47
[2021-09-22] MEDS: SODIUM CHLORIDE 0.45% 1,000 ML IV SCH ×3 (01:45→18:07)
[2021-09-22 04:00] VITALS: BP 114/65
[2021-09-22] MEDS: CLINDAMYCIN 600MG PREMIX 50 ML IV SCH ×3 (05:22→22:03)
[2021-09-22] MEDS: GABAPENTIN 100MG CAPSULE PO SCH ×3 (05:22→22:03)
[2021-09-22] MEDS: PANTOPRAZOLE 40MG DR TABLET PO SCH (06:46)
[2021-09-22] MEDS: HYDROCODONE/ACETAMINOPHEN 5/325MG TABLET PO PRN ×3 (07:01→18:49)
[2021-09-22 08:00] VITALS: BP 115/50
[2021-09-22] MEDS: FERROUS SULFATE 325MG TABLET PO SCH ×2 (08:53→18:49)
[2021-09-22] MEDS: MULTIVITAMINS,THER W-MINERALS TABLET PO SCH (08:53)
[2021-09-22] MEDS: DOCUSATE SODIUM 250MG CAPSULE PO SCH (08:53)
[2021-09-22] MEDS: ENOXAPARIN 40MG/0.4ML SYR SUBCUT SCH ×2 (08:53→20:46)
[2021-09-22] MEDS: SOTALOL HCL 80MG TABLET PO SCH ×2 (08:54→20:45)
[2021-09-22] MEDS: MEROPENEM 1,000 MG in SODIUM CHLORIDE 0.9% 100 ML IV SCH ×3 (10:14→22:04)
[2021-09-22 12:00] VITALS: BP 111/56
[2021-09-22] MEDS: ACETAMINOPHEN 325MG TABLET PO PRN ×2 (14:31→20:45)
[2021-09-22 15:47] LABS: CHLORIDE 103 mEq/L (98-107)
[2021-09-22 15:52] LABS: PHOSPHORUS 3.3 mg/dL (2.5-4.9)
[2021-09-22 16:00] VITALS: BP 100/56
[2021-09-22 19:48] LABS: HEMATOCRIT. 28.2 % (36.0-48.0); HEMOGLOBIN. 9.1 g/dL (12.0-16.0); MEAN CORPUSCULAR HEMOGLOBIN 29.7 pg (28.0-32.0); MEAN CORPUSCULAR VOLUME 92.1 fL (81.0-99.0); MEAN PLATELET VOLUME 8.8 fl (7.4-10.4); PLATELET 432 x1000/uL (130-400); RED BLOOD CELL COUNT 3.06 mill/uL (4.2-5.4); RED CELL DISTRIBUTION WIDTH 16.7 % (11.6-14.6)
[2021-09-22 20:00] VITALS: BP 102/44
[2021-09-22 22:19] LABS: PLATELET ESTIMATE INCREASED
[2021-09-23] VITALS (7 sets, daily range): BP systolic 101–127; BP diastolic 53–70
[2021-09-23] MEDS: HYDROCODONE/ACETAMINOPHEN 5/325MG TABLET PO PRN ×4 (01:01→16:14)
[2021-09-23] MEDS: SODIUM CHLORIDE 0.45% 1,000 ML IV SCH ×2 (01:04→09:07)
[2021-09-23] MEDS: ACETAMINOPHEN 325MG TABLET PO PRN ×2 (03:46→23:29)
[2021-09-23] MEDS: MEROPENEM 1,000 MG in SODIUM CHLORIDE 0.9% 100 ML IV SCH ×3 (05:14→21:27)
[2021-09-23] MEDS: CLINDAMYCIN 600MG PREMIX 50 ML IV SCH ×3 (05:14→21:27)
[2021-09-23] MEDS: GABAPENTIN 100MG CAPSULE PO SCH ×3 (05:15→21:28)
[2021-09-23] MEDS: FAMOTIDINE 20MG TABLET PO SCH (06:26)
[2021-09-23] MEDS: DOCUSATE SODIUM 250MG CAPSULE PO SCH (09:00)
[2021-09-23] MEDS: SOTALOL HCL 80MG TABLET PO SCH ×2 (09:00→21:33)
[2021-09-23] MEDS: MULTIVITAMINS,THER W-MINERALS TABLET PO SCH (09:06)
[2021-09-23] MEDS: ENOXAPARIN 40MG/0.4ML SYR SUBCUT SCH ×2 (09:06→21:28)
[2021-09-23] MEDS: FERROUS SULFATE 325MG TABLET PO SCH ×2 (09:06→16:14)
[2021-09-23] MEDS ORDERED: DIPHENHYDRAMINE 50MG/ML VIAL IV PRN (15:00)
[2021-09-23] MEDS ORDERED: HYDROCODONE/ACETAMINOPHEN 5/325MG TABLET PO NR (23:45)
[2021-09-24] MEDS: ACETAMINOPHEN 325MG TABLET PO PRN ×3 (02:08→13:43)
[2021-09-24 04:00] VITALS: BP 105/54
[2021-09-24] MEDS: CLINDAMYCIN 600MG PREMIX 50 ML IV SCH (05:42)
[2021-09-24] MEDS: MEROPENEM 1,000 MG in SODIUM CHLORIDE 0.9% 100 ML IV SCH ×3 (05:42→21:57)
[2021-09-24] MEDS: FAMOTIDINE 20MG TABLET PO SCH (05:51)
[2021-09-24] MEDS: GABAPENTIN 100MG CAPSULE PO SCH ×3 (05:51→21:57)
[2021-09-24 06:41] LABS: BASOPHILS % 0.6 % (0.0-2.0); EOSINOPHILS % 0.5 % (0.0-5.0); HEMATOCRIT. 25.4 % (36.0-48.0); HEMOGLOBIN. 8.3 g/dL (12.0-16.0); LYMPHOCYTES % 7.7 % (20.0-50.0); MEAN CORPUSCULAR HEMOGLOBIN 30.4 pg (28.0-32.0); MEAN CORPUSCULAR VOLUME 92.9 fL (81.0-99.0); MEAN PLATELET VOLUME 8.5 fl (7.4-10.4); MONOCYTES % 5.6 % (2.0-8.0); NEUTROPHILS % 85.6 % (40.0-76.0); PLATELET 480 x1000/uL (130-400); RED BLOOD CELL COUNT 2.74 mill/uL (4.2-5.4); RED CELL DISTRIBUTION WIDTH 16.5 % (11.6-14.6)
[2021-09-24 06:44] LABS: CHLORIDE 102 mEq/L (98-107)
[2021-09-24 08:00] VITALS: BP 105/63
[2021-09-24] MEDS: DOCUSATE SODIUM 250MG CAPSULE PO SCH (09:05)
[2021-09-24] MEDS: MULTIVITAMINS,THER W-MINERALS TABLET PO SCH (09:05)
[2021-09-24] MEDS: SOTALOL HCL 80MG TABLET PO SCH ×2 (09:06→21:00)
[2021-09-24] MEDS: FERROUS SULFATE 325MG TABLET PO SCH ×2 (09:06→16:48)
[2021-09-24] MEDS: ENOXAPARIN 40MG/0.4ML SYR SUBCUT SCH ×2 (09:06→21:57)
[2021-09-24 12:00] VITALS: BP 114/63
[2021-09-24 16:00] VITALS: BP 126/83
[2021-09-24] MEDS ORDERED: IRON SUCROSE COMPLEX 100 MG/5 ML ML IV SCH (17:00)
[2021-09-24] MEDS: HYDROCODONE/ACETAMINOPHEN 5/325MG TABLET PO PRN (18:43)
[2021-09-24 20:00] VITALS: BP 129/64
[2021-09-25] VITALS: BP 130/63
[2021-09-25] MEDS: ACETAMINOPHEN 325MG TABLET PO PRN ×2 (00:06→15:39)
[2021-09-25 04:00] VITALS: BP 117/63
[2021-09-25] MEDS: FAMOTIDINE 20MG TABLET PO SCH (05:21)
[2021-09-25] MEDS: MEROPENEM 1,000 MG in SODIUM CHLORIDE 0.9% 100 ML IV SCH ×3 (05:21→22:52)
[2021-09-25] MEDS: GABAPENTIN 100MG CAPSULE PO SCH ×3 (05:22→22:52)
[2021-09-25 05:57] LABS: BASOPHILS % 0.9 % (0.0-2.0); EOSINOPHILS % 0.8 % (0.0-5.0); HEMATOCRIT. 26.1 % (36.0-48.0); HEMOGLOBIN. 8.6 g/dL (12.0-16.0); LYMPHOCYTES % 9.7 % (20.0-50.0); MEAN CORPUSCULAR HEMOGLOBIN 30.7 pg (28.0-32.0); MEAN CORPUSCULAR VOLUME 93.2 fL (81.0-99.0); MEAN PLATELET VOLUME 8.1 fl (7.4-10.4); MONOCYTES % 5.8 % (2.0-8.0); NEUTROPHILS % 82.8 % (40.0-76.0); PLATELET 525 x1000/uL (130-400); RED CELL DISTRIBUTION WIDTH 16.6 % (11.6-14.6)
[2021-09-25 06:06] LABS: CHLORIDE 104 mEq/L (98-107)
[2021-09-25 08:00] VITALS: BP 125/65
[2021-09-25] MEDS: DOCUSATE SODIUM 250MG CAPSULE PO SCH (09:15)
[2021-09-25] MEDS: MULTIVITAMINS,THER W-MINERALS TABLET PO SCH (09:15)
[2021-09-25] MEDS: FERROUS SULFATE 325MG TABLET PO SCH ×2 (09:15→17:31)
[2021-09-25] MEDS: SOTALOL HCL 80MG TABLET PO SCH ×2 (09:15→22:52)
[2021-09-25] MEDS: ENOXAPARIN 40MG/0.4ML SYR SUBCUT SCH (09:16)
[2021-09-25] MEDS: HYDROCODONE/ACETAMINOPHEN 5/325MG TABLET PO PRN (11:58)
[2021-09-25 12:00] VITALS: BP 119/62
[2021-09-25] MEDS ORDERED: LIDOCAINE HCL 1% 20ML VIAL (Pyxis) INJ ONE (12:57)
[2021-09-25 20:00] VITALS: BP 101/62
[2021-09-26] VITALS: BP 107/56
[2021-09-26] MEDS: ACETAMINOPHEN 325MG TABLET PO PRN ×2 (01:46→09:08)
[2021-09-26 04:00] VITALS: BP 109/61
[2021-09-26] MEDS: GABAPENTIN 100MG CAPSULE PO SCH ×3 (07:07→23:19)
[2021-09-26] MEDS: MEROPENEM 1,000 MG in SODIUM CHLORIDE 0.9% 100 ML IV SCH ×3 (07:07→23:18)
[2021-09-26 08:00] VITALS: BP 94/50
[2021-09-26] MEDS: FERROUS SULFATE 325MG TABLET PO SCH ×2 (08:56→17:37)
[2021-09-26] MEDS: DOCUSATE SODIUM 250MG CAPSULE PO SCH (08:56)
[2021-09-26] MEDS: FAMOTIDINE 20MG TABLET PO SCH (08:56)
[2021-09-26] MEDS: MULTIVITAMINS,THER W-MINERALS TABLET PO SCH (08:56)
[2021-09-26] MEDS: ENOXAPARIN 40MG/0.4ML SYR SUBCUT SCH (08:56)
[2021-09-26] MEDS: SOTALOL HCL 80MG TABLET PO SCH ×3 (09:00→23:18)
[2021-09-26 12:00] VITALS: BP 108/58
[2021-09-26] MEDS: HYDROCODONE/ACETAMINOPHEN 5/325MG TABLET PO PRN ×2 (13:58→23:45)
[2021-09-26 16:00] VITALS: BP 116/61
[2021-09-26 20:00] VITALS: BP 115/85
[2021-09-27] VITALS: BP 114/52
[2021-09-27 04:00] VITALS: BP 107/59
[2021-09-27] MEDS: MEROPENEM 1,000 MG in SODIUM CHLORIDE 0.9% 100 ML IV SCH (07:03)
[2021-09-27] MEDS: FAMOTIDINE 20MG TABLET PO SCH (07:04)
[2021-09-27] MEDS: GABAPENTIN 100MG CAPSULE PO SCH (07:04)
[2021-09-27 08:00] VITALS: BP 126/66
[2021-09-27] MEDS: DOCUSATE SODIUM 250MG CAPSULE PO SCH (09:00)
[2021-09-27] MEDS: SOTALOL HCL 80MG TABLET PO SCH (09:05)
[2021-09-27] MEDS: MULTIVITAMINS,THER W-MINERALS TABLET PO SCH (09:05)
[2021-09-27] MEDS: FERROUS SULFATE 325MG TABLET PO SCH (09:05)
[2021-09-27] MEDS: ENOXAPARIN 40MG/0.4ML SYR SUBCUT SCH (09:06)
[2021-09-27] MEDS: HYDROCODONE/ACETAMINOPHEN 5/325MG TABLET PO PRN (09:07)
[2021-09-27 10:11] LABS: BASOPHILS % 1.1 % (0.0-2.0); EOSINOPHILS % 0.5 % (0.0-5.0); HEMATOCRIT. 28.5 % (36.0-48.0); HEMOGLOBIN. 9.4 g/dL (12.0-16.0); LYMPHOCYTES % 7.2 % (20.0-50.0); MEAN CORPUSCULAR HEMOGLOBIN 30.2 pg (28.0-32.0); MEAN CORPUSCULAR VOLUME 91.1 fL (81.0-99.0); MEAN PLATELET VOLUME 7.7 fl (7.4-10.4); MONOCYTES % 5.8 % (2.0-8.0); NEUTROPHILS % 85.4 % (40.0-76.0); PLATELET 484 x1000/uL (130-400); RED BLOOD CELL COUNT 3.13 mill/uL (4.2-5.4); RED CELL DISTRIBUTION WIDTH 16.4 % (11.6-14.6)
[2021-09-27] MEDS ORDERED: FAMO-135 PO (10:14)
[2021-09-27] MEDS ORDERED: GABA100C PO (10:15)
[2021-09-27 10:18] LABS: CHLORIDE 111 mEq/L (98-107)
[2021-09-27] MEDS ORDERED: SOTA80TA PO (10:18)
[2021-09-27] MEDS ORDERED: FERR325T6 MT (10:18)
[2021-09-27 10:23] VITALS: BP 126/66
[2021-09-27 12:00] VITALS: BP 110/57
== END 2021-09-27 14:00 | disposition home health service (06) | DRG 872 ==
LOC: ER 13:00 → 8WST 16:52 → EDBEDREQTM 16:54 → EDBEDREQ 16:54 → ENRESERV 21:10
PROVIDERS: ADMIT Internal Medicine Geriatric Medicine; ATTEND Internal Medicine Geriatric Medicine
PROC: 05H333Z Insertion of Infusion Device into Right Innominate Vein, Percutaneous Approach (ICD-10-PCS; principal; 2021-09-25)
PROC: B51MZZA Fluoroscopy of Right Upper Extremity Veins, Guidance (ICD-10-PCS; 2021-09-25)
DX: A41.51 Sepsis due to Escherichia coli [E. coli] (principal); I50.32 Chronic diastolic (congestive) heart failure; N17.9 Acute kidney failure, unspecified; N39.0 Urinary tract infection, site not specified; B19.9 Unspecified viral hepatitis without hepatic coma; I13.0 Hypertensive heart and chronic kidney disease with heart failure and stage 1 through stage 4 chronic kidney disease, or unspecified chronic kidney disease; Z68.41 Body mass index [BMI] 40.0-44.9, adult; D63.8 Anemia in other chronic diseases classified elsewhere; E66.01 Morbid (severe) obesity due to excess calories; G47.33 Obstructive sleep apnea (adult) (pediatric); I44.0 Atrioventricular block, first degree; I48.0 Paroxysmal atrial fibrillation; I49.5 Sick sinus syndrome; K80.20 Calculus of gallbladder without cholecystitis without obstruction; M19.90 Unspecified osteoarthritis, unspecified site; R04.0 Epistaxis; I27.20 Pulmonary hypertension, unspecified; B96.20 Unspecified Escherichia coli [E. coli] as the cause of diseases classified elsewhere; M54.9 Dorsalgia, unspecified; G89.29 Other chronic pain; M10.9 Gout, unspecified; D50.9 Iron deficiency anemia, unspecified; E11.22 Type 2 diabetes mellitus with diabetic chronic kidney disease; N18.9 Chronic kidney disease, unspecified; Z20.822 Contact with and (suspected) exposure to COVID-19; E86.0 Dehydration; E11.65 Type 2 diabetes mellitus with hyperglycemia; Z85.3 Personal history of malignant neoplasm of breast; Z85.42 Personal history of malignant neoplasm of other parts of uterus; Z86.711 Personal history of pulmonary embolism; Z86.718 Personal history of other venous thrombosis and embolism; Z90.12 Acquired absence of left breast and nipple; Z90.710 Acquired absence of both cervix and uterus; Z95.0 Presence of cardiac pacemaker; Z95.828 Presence of other vascular implants and grafts; Z86.73 Personal history of transient ischemic attack (TIA), and cerebral infarction without residual deficits; Z88.1 Allergy status to other antibiotic agents; Z88.5 Allergy status to narcotic agent; Z88.0 Allergy status to penicillin; Z91.09 Other allergy status, other than to drugs and biological substances; Z79.899 Other long term (current) drug therapy; Z79.01 Long term (current) use of anticoagulants; M48.8X9 Other specified spondylopathies, site unspecified
CPT/HCPCS: 36415; 36573; 71045; 72070; 72100; 76770; 80048; 80053; 80076; 80305; 80320; 81003; 83036; 83540; 83550; 83605; 83735; 83880; 84100; 84145; 84484; 84550; 85025; 86705; 86709; 86803; 87077; 87186; 87340; 87426; 87804; 93005; 93306; 97110; 97162; 97166; 97530; 99285; C1725; C1893; J0696; J1650; J2185; J3490; J7040; J7050; J7060; G0480